=== PATIENT | female | born 1980 | race Caucasian/White ===

== ENCOUNTER 2017-07-17 06:41 | Inpatient (IN) | payer BC ==
[~2017-07-17 06:41] MED LIST: Lactated Ringers 1,000 ML IV SCH; Lidocaine 1%/Sod Bicarbonate in NS 8.4% 1 ML Syringe IDERM PRN; Sodium Chloride 0.9% 10 ML Syringe FLUSH PRN
[2017-07-17] MEDS ORDERED: Propofol 200 MG/20 ML SDV ONE (06:45)
[2017-07-17] MEDS ORDERED: Lidocaine 1% 2 ML ONE ×2 (06:45)
[2017-07-17] MEDS ORDERED: Rocuronium 50 MG/5 ML Vial ONE ×2 (06:45→09:22)
[2017-07-17] MEDS ORDERED: ceFAZolin 1 GM Vial ONE ×2 (06:46)
[2017-07-17] MEDS ORDERED: fentaNYL 250 MCG/5 ML SDV ONE ×2 (06:46→08:26)
[2017-07-17] MEDS ORDERED: Midazolam 1 MG/ML 2 ML SDV ONE (06:47)
[2017-07-17] MEDS: Bupivacaine 0.25% 30 ML SDV ONE ×2 (07:29→08:25)
--- NOTE | 2017-07-17 07:36 | PCM.PREANE ---
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 OB/BYN History: Pelvic pressure, uterine fibroid Musculoskeletal History: Reports: None Neurological History: Reports: Migraines Psychiatric History: Reports: None Endocrine/Metabolic History: Reports: Diabetes, Gestational Hematologic History: Reports: None Immunologic History: Reports: None Oncologic (Cancer) History: Reports: None Dermatologic History: Reports: None - Infectious Disease History Infectious Disease History: Reports: None - Past Surgical History Head Surgeries/Procedures: Reports: None HEENT Surgical History: Reports: Oral Surgery, Other (See Below) Other HEENT Surgeries/Procedures: Teeth extraction Cardiovascular Surgical History: Reports: None Respiratory Surgical History: Reports: None GI Surgical History: Reports: None Female Surgical History: Reports: None Endocrine Surgical History: Reports: None Neurological Surgical History: Reports: None Musculoskeletal Surgical History: Reports: None Oncologic Surgical History: Reports: None Dermatological Surgical History: Reports: None - SUBSTANCE USE Smoking Status *Q: Never Smoker Second Hand Smoke Exposure: No Recreational Drug Use History: No - HOME MEDS Home Medications: Home Meds Ascorbate Calcium [Vitamin C] 500 mg PO BID 07/16/17 [History] Ferrous Sulfate [Iron] 325 mg PO BID 07/16/17 [History] Ibuprofen 600 mg PO DAILY PRN 07/16/17 [History] Polyethylene Glycol 3350 [MiraLAX] 17 gm PO DAILY 07/16/17 [History] Psyllium Husk [Metamucil] 0.4 gm PO DAILY 07/16/17 [History] - CURRENT (IN HOUSE) MEDS Current Meds: Current Medications Lactated Ringer's (Ringers, Lactated) 1,000 mls @ 125 mls/hr IV ASDIRECTED MEI Lidocaine/Sodium Bicarbonate (Buffered Lidocaine 1% In Ns 8.4%) 0.25 ml IDERM ONETIME PRN PRN Reason: Prior to IV Start Sodium Chloride (Saline Flush) 10 ml FLUSH ASDIRECTED PRN PRN Reason: Keep Vein Open Discontinued Medications Bupivacaine HCl (Marcaine 0.25%) Confirm Administered Dose 30 ml .ROUTE .STK- MED ONE Stop: 07/17/17 07:11 Cefazolin Sodium (Ancef) Confirm Administered Dose 1 gm .ROUTE .STK-MED ONE Stop: 07/17/17 06:47 Cefazolin Sodium (Ancef) Confirm Administered Dose 1 gm .ROUTE .STK-MED ONE Stop: 07/17/17 06:47 Fentanyl (Sublimaze) Confirm Administered Dose 250 mcg .ROUTE .STK-MED ONE Stop: 07/17/17 06:47 Lidocaine HCl (Xylocaine-Mpf 1%) Confirm Administered Dose 2 mls @ as directed .ROUTE .STK-MED ONE Stop: 07/17/17 06:46 Lidocaine HCl (Xylocaine-Mpf 1%) Confirm Administered Dose 2 mls @ as directed .ROUTE .STK-MED ONE Stop: 07/17/17 06:46 Midazolam HCl (Versed 1 Mg/Ml) Confirm Administered Dose 2 mg .ROUTE .STK-MED ONE Stop: 07/17/17 06:48 Propofol (Diprivan 20 Ml) Confirm Administered Dose 200 mg .ROUTE .STK-MED ONE Stop: 07/17/17 06:46 Rocuronium [place] (Zemuron) Confirm Administered Dose 50 mg .ROUTE .STK-MED ONE Stop: 07/17/17 06:46
--- NOTE | 2017-07-17 07:39 | PCM.PREANE ---
Preanesthetic Assessment - Anesthesia/Transfusion/Family Hx Anesthesia History: Prior Anesthesia Without Reaction Family History of Anesthesia Reaction: Yes (ALYSSA) Transfusion History: No Prior Transfusion(s) Intubation History: Unknown - Review of Systems General: No Symptoms Pulmonary: No Symptoms Cardiovascular: No Symptoms Gastrointestinal: No Symptoms Neurological: No Symptoms Other: Reports: None - Physical Assessment NPO Status Date: 07/16/17 NPO Status Time: 23:00 Pulse: 63 O2 Sat by Pulse Oximetry: 98 Respiratory Rate: 16 Blood Pressure: 122/79 Temperature: 98.0 C Vital Signs: Last Vital Signs Temp 36.7 C 07/17/17 07:00 Pulse 63 07/17/17 07:00 Resp 16 07/17/17 07:00 BP 122/79 07/17/17 07:00 Pulse Ox 98 07/17/17 07:00 Height: 1.73 m Weight: 101.151 kg ASA Class: 1 Mental Status: Alert & Oriented x3 Airway Class: Mallampati = 2 Dentition: Reports: Normal Dentition Thyro-Mental Finger Breadths: 3 Mouth Opening Finger Breadths: 3 ROM/Head Extension: Full Lungs: Clear to Auscultation, Normal Respiratory Effort Cardiovascular: Regular Rate, Regular Rhythm - Lab Values: Laboratory Last Values WBC 5.90 K/mm3 (3.98-10.04) 07/17/17 07:15 RBC 4.28 M/mm3 (3.98-5.22) 07/17/17 07:15 Hgb 11.7 gm/L (11.2-15.7) 07/17/17 07:15 Hct 36.2 % (34.1-44.9) 07/17/17 07:15 MCV 84.6 fl (79.4-94.8) 07/17/17 07:15 MCH 27.3 pg (25.6-32.2) 07/17/17 07:15 MCHC 32.3 g/dl (32.2-35.5) 07/17/17 07:15 RDW Std Deviation 43.6 fL (36.4-46.3) 07/17/17 07:15 Plt Count 338 K/mm3 (182-369) 07/17/17 07:15 MPV 9.2 fl (9.4-12.3) L 07/17/17 07:15 Neut % (Auto) 61.2 % (34.0-71.1) 07/17/17 07:15 Lymph % (Auto) 28.5 % (19.3-51.7) 07/17/17 07:15 [place] % (Auto) 6.6 % (4.7-12.5) 07/17/17 07:15 Eos % (Auto) 2.7 (0.7-5.8) 07/17/17 07:15 Baso % (Auto) 1.0 % (0.1-1.2) 07/17/17 07:15 Neut # (Auto) 3.61 K/mm3 (1.56-6.13) 07/17/17 07:15 Lymph # (Auto) 1.68 K/mm3 (1.18-3.74) 07/17/17 07:15 [place] # (Auto) 0.39 K/mm3 (0.24-0.36) H 07/17/17 07:15 Eos # (Auto) 0.16 K/mm3 (0.04-0.36) 07/17/17 07:15 Baso # (Auto) 0.06 K/mm3 (0.01-0.08) 07/17/17 07:15 Urine HCG, Qual Negative (NEGATIVE) 07/17/17 06:57 - Allergies Allergies/Adverse Reactions: Allergies Allergy/AdvReac Type Severity Reaction Status Date / Time amoxicillin Allergy Rash Verified 07/16/17 11:37 cephalexin [From Keflex] Allergy Rash Verified 07/16/17 11:37 - Acknowledgements Anesthesia Type Planned: General Anesthesia Pt an Appropriate Candidate for the Planned Anesthesia: Yes Alternatives and Risks of Anesthesia Discussed w Pt/Guardian: Yes Pt/Guardian Understands and Agrees with Anesthesia Plan: Yes PreAnesthesia Questionnaire HEENT History: Reports: Other (See Below) (hx pharyngitis) Other HEENT History: Pharyngitis Cardiovascular History: Reports: None Respiratory History: Reports: None Gastrointestinal History: Reports: None, GERD (pt states has been having trouble with GERD with growth of fibroid) Genitourinary History: Reports: None 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 OB/BYN History: Pelvic pressure, uterine fibroid Musculoskeletal History: Reports: None Neurological History: Reports: Migraines (no headache today) Psychiatric History: Reports: None Endocrine/Metabolic History: Reports: Diabetes, Gestational Hematologic History: Reports: None Immunologic History: Reports: None Oncologic (Cancer) History: Reports: None Dermatologic History: Reports: None - Infectious Disease History Infectious Disease History: Reports: None - Past Surgical History Head Surgeries/Procedures: Reports: None HEENT Surgical History: Reports: Oral Surgery, Other (See Below) Other HEENT Surgeries/Procedures: Teeth extraction Cardiovascular Surgical History: Reports: None Respiratory Surgical History: Reports: None GI Surgical History: Reports: None Female Surgical History: Reports: None Endocrine Surgical History: Reports: None Neurological Surgical History: Reports: None Musculoskeletal Surgical History: Reports: None Oncologic Surgical History: Reports: None Dermatological Surgical History: Reports: None Other Surgical History Comment: dental - SUBSTANCE USE Smoking Status *Q: Never Smoker Second Hand Smoke Exposure: No Recreational Drug Use History: No - HOME MEDS Home Medications: Home Meds Ascorbate Calcium [Vitamin C] 500 mg PO BID 07/16/17 [History] Ferrous Sulfate [Iron] 325 mg PO BID 07/16/17 [History] Ibuprofen 600 mg PO DAILY PRN 07/16/17 [History] Polyethylene Glycol 3350 [MiraLAX] 17 gm PO DAILY 07/16/17 [History] Psyllium Husk [Metamucil] 0.4 gm PO DAILY 07/16/17 [History] - CURRENT (IN HOUSE) MEDS Current Meds: Current Medications Lactated Ringer's (Ringers, Lactated) 1,000 mls @ 125 mls/hr IV ASDIRECTED MEI Last Admin: 07/17/17 07:10 Dose: 125 mls/hr Lidocaine/Sodium Bicarbonate (Buffered Lidocaine 1% In Ns 8.4%) 0.25 ml IDERM ONETIME PRN PRN Reason: Prior to IV Start Last Admin: 07/17/17 07:10 Dose: 0.25 ml Sodium Chloride (Saline Flush) 10 ml FLUSH ASDIRECTED PRN PRN Reason: Keep Vein Open Discontinued Medications Bupivacaine HCl (Marcaine 0.25%) Confirm Administered Dose 30 ml .ROUTE .STK- MED ONE Stop: 07/17/17 07:11 Last Admin: 07/17/17 07:29 Dose: 30 ml Cefazolin Sodium (Ancef) Confirm Administered Dose 1 gm .ROUTE .STK-MED ONE Stop: 06/06/18 06:47 Cefazolin Sodium (Ancef) Confirm Administered Dose 1 gm .ROUTE .STK-MED ONE Stop: 07/17/17 06:47 Fentanyl (Sublimaze) Confirm Administered Dose 250 mcg .ROUTE .STK-MED ONE Stop: 07/17/17 06:47 Lidocaine HCl (Xylocaine-Mpf 1%) Confirm Administered Dose 2 mls @ as directed .ROUTE .STK-MED ONE Stop: 07/17/17 06:46 Lidocaine HCl (Xylocaine-Mpf 1%) Confirm Administered Dose 2 mls @ as directed .ROUTE .STK-MED ONE Stop: 07/17/17 06:46 Midazolam HCl (Versed 1 Mg/Ml) Confirm Administered Dose 2 mg .ROUTE .STK-MED ONE Stop: 07/17/17 06:48 Propofol (Diprivan 20 Ml) Confirm Administered Dose 200 mg .ROUTE .STK-MED ONE Stop: 07/17/17 06:46 Rocuronium [place] (Zemuron) Confirm Administered Dose 50 mg .ROUTE .STK-MED ONE Stop: 07/17/17 06:46
[2017-07-17] MEDS ORDERED: EPINEPHrine 1 MG/ML 30 ML MDV ONE (08:38)
[2017-07-17] MEDS ORDERED: Sodium Chloride 0.9% 50 ML SDV ONE (08:41)
[2017-07-17] MEDS ORDERED: Lidocaine 1% with EPINEPHrine 1:100,000 20 ML MDV ONE (08:41)
[2017-07-17] MEDS ORDERED: Lactated Ringers 1,000 ML ONE ×2 (08:46→09:37)
[2017-07-17] MEDS ORDERED: Ondansetron 4 MG/2 ML SDV IVPUSH PRN (08:57)
[2017-07-17] MEDS ORDERED: Meperidine PF 50 MG/ML Syringe IVPUSH PRN (08:57)
[2017-07-17] MEDS ORDERED: HYDROmorphone 0.5 MG/0.5 ML Syringe IVPUSH ONE ×3 (08:57→13:29)
[2017-07-17] MEDS ORDERED: HYDROmorphone 0.5 MG/0.5 ML Syringe ONE ×2 (09:23→10:02)
[2017-07-17] MEDS ORDERED: fentaNYL 100 MCG/2 ML SDV ONE (09:46)
[2017-07-17] MEDS ORDERED: Ondansetron 4 MG/2 ML SDV ONE (10:13)
--- NOTE | 2017-07-17 10:44 | PCM.POSTAN ---
POST ANESTHESIA ASSESSMENT - MENTAL STATUS Mental Status: Alert, Oriented - VITAL SIGNS Pulse Rate: 69 SaO2: 99 Resp Rate: 11 Blood Pressure: 120/60 Temperature: 97.7 C - RESPIRATORY Respiratory Status: Respiratory Rate WNL, Airway Patent, O2 Saturation Stable - CARDIOVASCULAR CV Status: Pulse Rate WNL, Blood Pressure Stable - GASTROINTESTINAL GI Status: No Symptoms - PAIN Pain Score: 0 Free Text/Narrative:: pt denies pain at this time, responds appropriately and then back to sleeping - POST OP HYDRATION Hydration Status: Adequate & Stable
[2017-07-17] MEDS: fentaNYL 100 MCG/2 ML SDV IVPUSH PRN ×2 (10:48→11:01)
--- NOTE | 2017-07-17 11:46 | PCM48HPAN ---
Post Anesthesia Note - EVALUATION WITHIN 48HRS OF ANESTHETIC Vital Signs in Normal Range: Yes Patient Participated in Evaluation: Yes Respiratory Function Stable: Yes Airway Patent: Yes Cardiovascular Function Stable: Yes Hydration Status Stable: Yes Pain Control Satisfactory: Yes Nausea and Vomiting Control Satisfactory: Yes Mental Status Recovered: Yes Pulse Rate: 69 Resp Rate: 10 Temperature: 97.7 C Blood Pressure: 120/60
--- NOTE | 2017-07-17 13:08 | PCM.OPNOTE ---
- General Post-Op/Procedure Note Date of Surgery/Procedure: 07/17/17 Operative Procedure(s): total abdominal hysterectomy Findings: Large uterus with softball sized degenerating fibroids, normal appendix Pre Op Diagnosis: menorrhagia, fibroid uterus Post-Op Diagnosis: Same Anesthesia Technique: General ET Tube Primary Surgeon: Quiana Ackerman Lasting Room Supervisor: Sasha Teague Reason Lasting Room Supervisor Was Necessary: difficult surgery, fibroid uterus, open procedure, retraction Fluid Replacement, Intraop: 2,400 Output, Urine Amount: 275 EBL in mLs: 400 Complications: None Condition: Good Free Text/Narrative:: Intake & Output 07/16/17 07/17/17 07/17/17 22:59 06:59 14:59 Intake Total 400 Output Total 335 Balance 65
[2017-07-17] MEDS ORDERED: Ondansetron 4 MG Tab.DIS PO PRN (13:22)
[2017-07-17] MEDS ORDERED: Ketorolac 30 MG/ML SDV IVPUSH PRN (13:22)
[2017-07-17] MEDS ORDERED: HYDROmorphone 0.5 MG/0.5 ML SYRINGE IVPUSH ONE (14:30)
[2017-07-17] MEDS: Acetaminophen/HYDROcodone 325-5 MG Tab PO PRN ×3 (16:33→23:34)
[2017-07-17] MEDS: Docusate Sodium 100 MG Cap PO SCH (20:32)
[2017-07-18] MEDS: Acetaminophen/HYDROcodone 325-5 MG Tab PO PRN ×2 (04:38→07:42)
[2017-07-18] MEDS: Docusate Sodium 100 MG Cap PO SCH (08:47)
--- NOTE | 2017-07-18 09:44 | PCM.DCSUM1 ---
Discharge Summary - Discharge Data Discharge Date: 07/18/17 Discharge Disposition: Home, Self-Care 01 Condition: Good - Patient Summary/Data Operative Procedure(s) Performed: total abdominal hysterectomy Hospital Course: Admitted postop from total abdominal hysterectomy. Unremarkable postop course. Desires discharge on POD1. No complications. Pain controlled. No issues. - Patient Instructions Diet: Usual Diet as Tolerated Activity: No Strenuous Activities Activity, Other: pelvic rest Driving: Do Not Drive (while needing pain meds) Showering/Bathing: May Shower Wound/Incision Care: Keep Operative Site/Wound Site Clean and Dry Notify Provider of: Fever, Increased Pain, Swelling and Redness, Drainage, Nausea and/or Vomiting - Discharge Plan Home Medications: Home Meds Ascorbate Calcium [Vitamin C] 500 mg PO BID 07/16/17 [History] Ferrous Sulfate [Iron] 325 mg PO BID 07/16/17 [History] Ibuprofen 600 mg PO DAILY PRN 07/16/17 [History] Polyethylene Glycol 3350 [MiraLAX] 17 gm PO DAILY 07/16/17 [History] Psyllium Husk [Metamucil] 0.4 gm PO DAILY 07/16/17 [History] Referrals: Quiana Ackerman MD [Physician] - - Discharge Summary/Plan Comment DC Time >30 min.: No - General Info Date of Service: 07/18/17 Functional Status: Reports: Pain Controlled - Review of Systems General: Reports: No Symptoms HEENT: Reports: No Symptoms Pulmonary: Reports: No Symptoms Cardiovascular: Reports: No Symptoms Gastrointestinal: Reports: No Symptoms Genitourinary: Reports: No Symptoms Musculoskeletal: Reports: No Symptoms Skin: Reports: No Symptoms Neurological: Reports: No Symptoms Psychiatric: Reports: No Symptoms - Patient Data Vitals - Most Recent: Last Vital Signs Temp 37.0 C 07/18/17 07:43 Pulse 87 07/18/17 07:43 Resp 16 07/18/17 07:43 BP 119/56 L 07/18/17 07:43 Pulse Ox 96 07/18/17 07:43 Weight - Most Recent: 101.151 kg I&O - Last 24 hours: Intake & Output 07/17/17 07/18/17 07/18/17 22:59 06:59 14:59 Intake Total 850 360 Output Total 875 Balance -25 360 Lab Results - Last 24 hrs: Laboratory Results - last 24 hr 07/18/17 Range/Units 06:12 WBC 8.18 (3.98-10.04) K/mm3 RBC 3.12 L (3.98-5.22) M/mm3 Hgb 8.6 L (11.2-15.7) gm/L Hct 27.2 L (34.1-44.9) % MCV 87.2 (79.4-94.8) fl MCH 27.6 (25.6-32.2) pg MCHC 31.6 L (32.2-35.5) g/dl RDW Std Deviation 43.5 (36.4-46.3) fL Plt Count 300 (182-369) K/mm3 MPV 9.6 (9.4-12.3) fl Neut % (Auto) 72.7 H (34.0-71.1) % Lymph % (Auto) 18.0 L (19.3-51.7) % [place] % (Auto) 8.6 (4.7-12.5) % Eos % (Auto) 0.5 L (0.7-5.8) Baso % (Auto) 0.1 (0.1-1.2) % Neut # (Auto) 5.95 (1.56-6.13) K/mm3 Lymph # (Auto) 1.47 (1.18-3.74) K/mm3 [place] # (Auto) 0.70 H (0.24-0.36) K/mm3 Eos # (Auto) 0.04 (0.04-0.36) K/mm3 Baso # (Auto) 0.01 (0.01-0.08) K/mm3 Med Orders - Current: Current Medications Hydrocodone Bitart/Acetaminophen ([place] 325-5 Mg) 2 tab PO Q3H PRN PRN Reason: Pain (moderate 4-6) Last Admin: 07/18/17 07:42 Dose: 2 tab Docusate Sodium (Colace) 100 mg PO BID MEI Last Admin: 07/18/17 08:47 Dose: 100 mg Ketorolac Tromethamine (Toradol) 30 mg IVPUSH Q8H PRN PRN Reason: Pain (moderate 4-6) Stop: 07/22/17 10:58 Last Admin: 07/18/17 04:38 Dose: 30 mg Ondansetron HCl (Zofran Odt) 4 mg PO Q6H PRN PRN Reason: Nausea/Vomiting Discontinued Medications Bupivacaine HCl (Marcaine 0.25%) Confirm Administered Dose 30 ml .ROUTE .STK- MED ONE Stop: 07/17/17 07:11 Last Admin: 07/17/17 08:25 Dose: 17 ml Cefazolin Sodium (Ancef) Confirm Administered Dose 1 gm .ROUTE .STK-MED ONE Stop: 07/17/17 06:47 Cefazolin Sodium (Ancef) Confirm Administered Dose 1 gm .ROUTE .STK-MED ONE Stop: 07/17/17 06:47 Epinephrine HCl (Adrenalin) Confirm Administered Dose 30 mg .ROUTE .STK-MED ONE Stop: 07/17/17 08:39 Fentanyl (Sublimaze) Confirm Administered Dose 250 mcg .ROUTE .STK-MED ONE Stop: 07/17/17 06:47 Fentanyl (Sublimaze) Confirm Administered Dose 250 mcg .ROUTE .STK-MED ONE Stop: 07/17/17 08:27 Fentanyl (Sublimaze) 50 mcg IVPUSH Q5M PRN PRN Reason: Pain Last Admin: 07/17/17 11:01 Dose: 50 mcg Fentanyl (Sublimaze) Confirm Administered Dose 100 mcg .ROUTE .STK-MED ONE Stop: 07/17/17 09:47 Hydromorphone HCl (Dilaudid) 0.5 mg IVPUSH ONETIME ONE Stop: 07/17/17 08:58 Hydromorphone HCl (Dilaudid) Confirm Administered Dose 0.5 mg .ROUTE .STK-MED ONE Stop: 07/17/17 09:24 Hydromorphone HCl (Dilaudid) Confirm Administered Dose 0.5 mg .ROUTE .STK-MED ONE Stop: 07/17/17 10:03 Hydromorphone HCl (Dilaudid) 0.5 mg IVPUSH ONETIME ONE Stop: 07/17/17 11:40 Last Admin: 07/17/17 12:06 Dose: 0.5 mg Hydromorphone HCl (Dilaudid) 0.5 mg IVPUSH ONETIME ONE Stop: 07/17/17 13:30 Last Admin: 07/17/17 14:40 Dose: 0.5 mg Hydromorphone HCl (Dilaudid) 0.5 mg IVPUSH ONETIME ONE Stop: 07/17/17 14:31 Last Admin: 07/17/17 18:12 Dose: 0.5 mg Lactated Ringer's (Ringers, Lactated) 1,000 mls @ 125 mls/hr IV ASDIRECTED MEI Last Admin: 07/17/17 07:10 Dose: 125 mls/hr Lidocaine HCl (Xylocaine-Mpf 1%) Confirm Administered Dose 2 mls @ as directed .ROUTE .STK-MED ONE Stop: 07/17/17 06:46 Lidocaine HCl (Xylocaine-Mpf 1%) Confirm Administered Dose 2 mls @ as directed .ROUTE .STK-MED ONE Stop: 07/17/17 06:46 Lactated Ringer's (Ringers, Lactated) Confirm Administered Dose 1,000 mls @ as directed .ROUTE .STK-MED ONE Stop: 07/17/17 08:47 Lactated Ringer's (Ringers, Lactated) Confirm Administered Dose 1,000 mls @ as directed .ROUTE .ST-MED ONE Stop: 07/17/17 09:38 Lidocaine/Epinephrine (Xylocaine 1% With Epinephrine 1:100,000) Confirm Administered Dose 20 ml .ROUTE .STK-MED ONE Stop: 07/17/17 08:42 Last Admin: 07/17/17 08:43 Dose: 10 ml Lidocaine/Sodium Bicarbonate (Buffered Lidocaine 1% In Ns 8.4%) 0.25 ml IDERM ONETIME PRN PRN Reason: Prior to IV Start Last Admin: 07/17/17 07:10 Dose: 0.25 ml Meperidine HCl (Demerol) 12.5 mg IVPUSH ASDIRECTED PRN PRN Reason: Shivering Midazolam HCl (Versed 1 Mg/Ml) Confirm Administered Dose 2 mg .ROUTE .STK-MED ONE Stop: 07/17/17 06:48 Ondansetron HCl (Zofran) 4 mg IVPUSH ONETIME PRN PRN Reason: Nausea/Vomiting Last Admin: 07/17/17 12:24 Dose: 4 mg Ondansetron HCl (Zofran) Confirm Administered Dose 4 mg .ROUTE .STK-MED ONE Stop: 07/17/17 10:14 Propofol (Diprivan 20 Ml) Confirm Administered Dose 200 mg .ROUTE .STK-MED ONE Stop: 07/17/17 06:46 Rocuronium [place] (Zemuron) Confirm Administered Dose 50 mg .ROUTE .STK-MED ONE Stop: 07/17/17 06:46 Rocuronium [place] (Zemuron) Confirm Administered Dose 50 mg .ROUTE .STK-MED ONE Stop: 07/17/17 09:23 Sodium Chloride (Saline Flush) 10 ml FLUSH ASDIRECTED PRN PRN Reason: Keep Vein Open Sodium Chloride (Normal Saline) Confirm Administered Dose 50 ml .ROUTE .STK-MED ONE Stop: 07/17/17 08:42 - Exam General: Reports: Alert, Oriented HEENT: Reports: Pupils Equal, Pupils Reactive, EOMI, Mucous Membr. Moist/[place]ck: Reports: Supple Lungs: Reports: Clear to Auscultation, Normal Respiratory Effort Cardiovascular: Reports: Regular Rate, Regular Rhythm GI/Abdominal Exam: Normal Bowel Sounds, Soft, Non-Tender, No Organomegaly, No Distention, No Abnormal Bruit, No Mass, Pelvis Stable Rectal (Female) Exam: Normal Exam, Normal Rectal Tone Back Exam: Reports: Normal Inspection Extremities: Normal Inspection, Normal Range of Motion, Non-Tender, No Pedal Edema, Normal Capillary Refill Skin: Reports: Warm, Dry, Intact Wound/Incisions: Reports: Healing Well Neurological: Reports: No New Focal Deficit Psy/Mental Status: Reports: Alert, Normal Affect, Normal Mood
== END 2017-07-18 10:53 | disposition home or self-care (01) | DRG 519 ==
LOC: JD.OB 06:41 → UNDOADMIN 06:41
PROVIDERS: ADMIT Obstetrics & Gynecology; ATTEND Obstetrics & Gynecology
PROC: 0UT90ZZ Resection of Uterus, Open Approach (ICD-10-PCS; principal; 2017-07-17)
PROC: 0UT70ZZ Resection of Bilateral Fallopian Tubes, Open Approach (ICD-10-PCS; 2017-07-17)
DX: D25.2 Subserosal leiomyoma of uterus (principal); N92.0 Excessive and frequent menstruation with regular cycle; Z88.2 Allergy status to sulfonamides; Z88.1 Allergy status to other antibiotic agents; Z80.41 Family history of malignant neoplasm of ovary
CPT/HCPCS: 00840; 36415; 81025; 85025; 86850; 86900; 86901; A9270-GY; J0171; J0690; J1170; J1885; J2001; J2250; J2405; J2704; J3010; J3490; J7120

== ENCOUNTER 2017-07-28 08:55 | Emergency (ER) | payer BC ==
--- NOTE | 2017-07-28 09:29 | EDM.PDOC ---
ED HPI GENERAL MEDICAL PROBLEM - General Chief Complaint: CSR RETAIL Problem Stated Complaint: VAGINAL BLEEDING AFTER HYSTERECTOMY Time Seen by Provider: 07/28/17 09:24 Source of Information: Reports: Patient History Limitations: Reports: No Limitations - History of Present Illness INITIAL COMMENTS - FREE TEXT/NARRATIVE: 36-year-old female presents to the ED with bleeding per vagina. She states this started after a bowel movement this morning. Stools have been little bit harder than normal but she states for the most part she's been going daily since she had her hysterectomy on July 17. She'll large fibroid tumor removed. Both ovaries were retained. This morning she experienced bright red vaginal bleeding with bowel movement. He states she has more discomfort now than she had almost since surgery. He'll have a Percocet tablet at bedtime only. She is using Motrin otherwise for pain relief. Second complaint was leg cramps. These are intermittent like charley horses. Onset: Today Onset Date: 07/28/17 Onset Time: 08:30 Duration: Hour(s): Location: Reports: Other (BI-RADS vaginal bleeding.) Quality: Reports: Ache Severity: Mild Improves with: Reports: None Worsens with: Reports: Other (Seem to come on after having a bowel movement. She did not feel she had to push hard) Context: Reports: Other (Recent abdominal surgery with classical incision for removal of fibroid uterus July 17.). Denies: Activity, Exercise, Lifting, Sick Contact, Trauma Associated Symptoms: Reports: Other (Plays a muscle crest particular in her left lower extremity and is developed a bruise medial aspect of her lower leg.) Treatments DR[employer]OX MECH[employer]IC: Reports: Other (see below) (Taking a half a Percocet at bedtime and Motrin otherwise.) Perineal Area Pain Score (Numeric/FACES): 3 - Related Data Allergies Allergy/AdvReac Type Severity Reaction Status Date / Time amoxicillin Allergy Rash Verified 07/28/17 09:06 cephalexin [From Keflex] Allergy Rash Verified 07/28/17 09:06 Home Meds: Home Meds Ascorbate Calcium [Vitamin C] 500 mg PO BID 07/16/17 [History] Ferrous Sulfate [Iron] 325 mg PO DAILY 07/16/17 [History] Ibuprofen 600 mg PO DAILY PRN 07/16/17 [History] Polyethylene Glycol 3350 [MiraLAX] 17 gm PO DAILY 07/16/17 [History] Psyllium Husk [Metamucil] 0.4 gm PO DAILY 07/16/17 [History] Past Medical History HEENT History: Reports: Other (See Below) Other HEENT History: Pharyngitis Cardiovascular History: Reports: None Respiratory History: Reports: None Gastrointestinal History: Reports: None, GERD Genitourinary History: Reports: None CSR RETAIL History: Reports: Other OB/BYN History: Pelvic pressure, uterine fibroid Musculoskeletal History: Reports: None Neurological History: Reports: Migraines Psychiatric History: Reports: None Endocrine/Metabolic History: Reports: Diabetes, Gestational Hematologic History: Reports: None Immunologic History: Reports: None Oncologic (Cancer) History: Reports: None Dermatologic History: Reports: None - Infectious Disease History Infectious Disease History: Reports: None - Past Surgical History Head Surgeries/Procedures: Reports: None HEENT Surgical History: Reports: Oral Surgery, Other (See Below) Other HEENT Surgeries/Procedures: Teeth extraction Cardiovascular Surgical History: Reports: None Respiratory Surgical History: Reports: None GI Surgical History: Reports: None Female Surgical History: Reports: Hysterectomy Endocrine Surgical History: Reports: None Neurological Surgical History: Reports: None Musculoskeletal Surgical History: Reports: None Oncologic Surgical History: Reports: None Dermatological Surgical History: Reports: None Social & Family History - Tobacco Use Smoking Status *Q: Never Smoker - Caffeine Use Caffeine Use: Reports: Coffee - Recreational Drug Use Recreational Drug Use: No - Living Situation & Occupation Living situation: Reports: Occupation: Employed ED ROS GENERAL - Review of Systems Review Of Systems: See Below Constitutional: Reports: Decreased Appetite. Denies: Fever, Chills, Malaise, Weakness, Fatigue, Weight Loss HEENT: Reports: No Symptoms (Today) Respiratory: Reports: No Symptoms Cardiovascular: Reports: No Symptoms Endocrine: Reports: No Symptoms GI/Abdominal: Reports: Other (Lower abdominal discomfort. Mostly suprapubic.). Denies: Constipation, Diarrhea, Flatus, Hematemesis, Hematochezia, Nausea, Stool Incontinence, Vomiting : Reports: No Symptoms Musculoskeletal: Reports: No Symptoms Skin: Reports: No Symptoms Neurological: Reports: No Symptoms Psychiatric: Reports: No Symptoms Hematologic/Lymphatic: Reports: No Symptoms ED EXAM, GI/ABD - Physical Exam Exam: See Below Exam Limited By: No Limitations General Appearance: Alert, WD/WN, Moderate Distress (Apprehensive and anxious.) Eyes: Bilateral: Normal Appearance GI/Abdominal Exam: Abnormal Bowel Sounds (Bowel sounds are quite active in all 4 quadrants. She has a midline infraumbilical incision that is healing well.). No: Guarding, Rigid ( Abdomen soft palpation with no peritoneal signs.), Rebound , Tender (Female) Exam: Vaginal Bleeding (Blood appreciated in the posterior vaginal fornix. There was some dried bright red blood on the vulva.), Other (Speculum examination reveals tenderness in the left aspect of the vaginal cuff. I could not visualize the vaginal cuff completely due to it being so high. There was no active bleeding appreciated once I cleansed the vagina it was all old looking blood. This may represent a draining hematoma. Pelvic examination done at the bedside with ultrasound revealed no obvious significant hematoma in the floor the pelvis. Patient reassured at this time that nothing serious is evident.) Back Exam: Normal Inspection, Full Range of Motion. No: CVA Tenderness (L), CVA Tenderness (R) Extremities: Normal Inspection, Normal Range of Motion, Non-Tender, No Pedal Edema, Other (Examination of her left lower extremity shows the tissue to be very flaccid with no evidence clinically of a DVT. There is a superficial bruise 2 cm in diameter over the medial mid calf area.) Neurological: Alert, Oriented, CN II-XII Intact, Normal Cognition, Normal Gait Psychiatric: Tearful Skin Exam: Warm, Normal Color, No Rash Course - Vital Signs Last Recorded V/S: Last Vital Signs Temp 37.1 C 07/28/17 09:01 Pulse 83 07/28/17 09:01 Resp 12 07/28/17 09:01 BP 147/78 H 07/28/17 09:01 Pulse Ox 99 07/28/17 09:01 - Orders/Labs/Meds Orders: Active Orders 24 hr Category Date Time Status Abdomen 1V Flat [CR] Stat Exams 07/28/17 09:48 Taken URINALYSIS W/MICROSCOPIC [UA W/MICROSCOPIC] [URIN] Stat Lab 07/28/17 09:30 Ordered Labs: Laboratory Tests 07/28/17 Range/Units 09:30 Urine Color Yellow (Yellow) Urine Appearance Clear (Clear) Urine pH 7.0 (5.0-8.0) Ur Specific [place] 1.015 (1.005-1.030) Urine Protein Negative (Negative) Urine Glucose (UA) Negative (Negative) Urine Ketones Negative (Negative) Urine Occult Blood 2+ H (Negative) Urine Nitrite Negative (Negative) Urine Bilirubin Negative (Negative) Urine Urobilinogen 0.2 (0.2-1.0) Ur Leukocyte Esterase Negative (Negative) Urine RBC 5-10 H (0-5) /hpf Urine WBC 0-5 (0-5) /hpf Ur Epithelial Cells 0-5 (0-5) /hpf Urine Bacteria Few (FEW) /hpf Urine Mucus Few (FEW) /hpf Meds: Medications Discontinued Medications Generic Name Dose Route Start Last Admin Trade Name Freq PRN Reason Stop Dose Admin Magnesium Citrate 240 ml 07/28/17 10:07 Citrate Of Magnesia PO 07/28/17 10:08 ONETIME ONE - Radiology Interpretation Free Text/Narrative:: 36-year-old female presents to the ED 11 days post operative total abdominal hysterectomy. Was removed abdominally through a classical incision due to very large fibroid tumor. Presents to the ED with diffuse lower pelvic discomfort and vaginal bleeding this morning. Benign abdominal examination with hyperactive bowel sounds in all 4 quadrants. Plan urinalysis. KUB to be done. Speculum exam will be done to see if there is active bleeding from the vaginal cuff that could be cauterized. - Re-Assessments/Exams Free Text/Narrative Re-Assessment/Exam: 07/28/17 09:49 speculum exam reveals some blood on the outer volar. This is dried and all blood. Pelvic floor shows a menstrual venous looking blood. Attempted to find the vaginal cuff on 5 different occasions and never did identify the true vaginal cuff to the deepness of the vagina.. No no source of bleeding was ever identified. Patient has most her pain on the left side of the vaginal wall. There is no excess of bruising or ecchymoses. Once they cleansed the vagina with Q-tips no further bleeding was evident. Plan KUB to be done. Ultrasound of the abdomen done at the bedside just showed a normal urinary bladder with perhaps a diverticulum off the urinary bladder on the left side. There was no free fluid in the pelvis. 07/28/17 10:08 urinalysis shows 2+. 5-10 RBCs per high-power field. No signs of infection. KUB reveals increased stool throughout the entire colon compatible with constipation. Patient will be given 8 ounces of magnesium citrate per ora to provide bowel cleanse. Wear a pad and suspect spotting per vagina will last another 48 hours and then dissipated on its own. If it persists after that she will contact Dr. Casey. Patient reassured. Departure - Departure Time of Disposition: 10:09 Disposition: Home, Self-Care 01 Condition: Fair Clinical Impression: Postoperative vaginal bleeding, Constipation by delayed colonic transit - Discharge Information Referrals: Quiana Ackerman MD [Primary Care Provider] - Forms: ED Department Discharge Additional Instructions: Evaluation in the emergency department today in regards to sudden onset of bleeding per vagina 11 days post hysterectomy. This means there is some bleeding from the vaginal cuff which usually as part of the healing process. There may have been a small hematoma that had to come to the surface and drained. On inspection of the vagina there was old menstrual like blood in the pelvic floor that was cleansed up. No active bright red bleeding was appreciated. The vaginal cuff itself is very difficult to visualize as it is very high. I therefore I could find no area that required cauterization. Suspect the spotting may last another couple of days and then go away on its own. Second problem identified on x-ray was that of constipation with a lot of stool throughout the entire colon. Just bowel cleanse with Citroma or magnesium citrate 8 ounces by mouth mixed with 5-6 ounces of juice or Powerade or Gatorade etc. This usually starts to work in 1-2 hours and will make the bowels work for 5 times. This should relieve a lot of your lower abdominal discomfort. Urinalysis showed no signs of infection. Follow-up with Dr. Casey if bleeding per vagina persists greater than 48 hours. - My Orders Last 24 Hours: My Active Orders 07/28/17 09:30 URINALYSIS W/MICROSCOPIC [UA W/MICROSCOPIC] [URIN] Stat 07/28/17 09:48 Abdomen 1V Flat [CR] Stat - Assessment/Plan Last 24 Hours: My Active Orders 07/28/17 09:30 URINALYSIS W/MICROSCOPIC [UA W/MICROSCOPIC] [URIN] Stat 07/28/17 09:48 Abdomen 1V Flat [CR] Stat
[2017-07-28] MEDS ORDERED: Magnesium Citrate Solution 296 ML Bottle PO ONE (10:07)
--- NOTE | 2017-07-30 16:06 | CR ---
Abdomen: Supine view of the abdomen was obtained. Comparison: No previous study. Slight increased stool within the colon is seen. Several pelvic calcifications are seen which are believed to be incidental. No soft tissue abnormality is seen. Bony structures appear within normal limits. Impression: 1. Slight increased stool within the colon. Diagnostic code #2
== END 2017-07-28 10:21 | disposition home or self-care (01) ==
LOC: JD.ED 08:55
DX: N99.820 Postprocedural hemorrhage of a genitourinary system organ or structure following a genitourinary system procedure (principal); K59.01 Slow transit constipation; Z88.1 Allergy status to other antibiotic agents; Z79.899 Other long term (current) drug therapy
CPT/HCPCS: 74018; 74018-26; 81001; 99283; 99284

== ENCOUNTER 2022-06-14 10:17 | Emergency (ER) | payer BC ==
[2022-06-14 11:34] LABS: ESTIMATED GFR 83 mL/min (>60)
[2022-06-14] MEDS ORDERED: Cyclobenzaprine 10 MG Tab PO ONE (12:35)
[2022-06-14] MEDS ORDERED: Ketorolac 60 MG/2 ML SDV IM ONE (12:35)
== END 2022-06-14 13:00 | disposition home or self-care (01) ==
LOC: JD.ED 10:17
DX: R07.89 Other chest pain (principal); Z88.0 Allergy status to penicillin; Z88.1 Allergy status to other antibiotic agents
CPT/HCPCS: 36415; 71045; 80053; 83735; 84484; 85025; 85379; 85610; 93005; 96372; 99285; A9270; J1885